=== PATIENT | male | born 1995 | race African-American/Black ===

== ENCOUNTER 2017-03-08 18:09 | Emergency (ER) | payer SELFPAY ==
[~2017-03-08] VITALS: Ht 172.7 cm; Wt 84.0 kg
[2017-03-08 23:41] VITALS: BP 124/77
== END 2017-03-08 23:41 | disposition home or self-care (01) ==
LOC: ER 18:10
DX: L08.89 Other specified local infections of the skin and subcutaneous tissue (principal)
CPT/HCPCS: 99283